=== PATIENT | male | born 1970 | race American Indian/Alaskan Native ===

== ENCOUNTER 2025-03-31 10:49 | Emergency (ER) | payer OTHER ==
[~2025-03-31] VITALS: Ht 182.9 cm; Wt 70.7 kg
[2025-03-31 11:21] VITALS: BP 145/90; PULSE 98; RESP 16; TEMP 97.3; O2SAT 96
--- NOTE | 2025-03-31 11:42 | ED.PDOC ---
History of Present Illness HPI Comments 54-year-old male with no reported PMHx presents with a chief complaint of lump/cyst-like structure to the lateral portion of his right thigh. Patient states that the structure has been there for "about 30 years", but states that now it is growing and is painful to touch. Patient denies getting it looked at b efore by a medical provider. Patient denies any drainage from the structure. No other symptoms or modifying factors present at this time. Chief Complaint: Abscess Time Seen by MD: 11:12 Primary Care Provider: UNKNOWN Reviewed Notes: Medications, Allergies Allergies: Coded Allergies: NO KNOWN ALLERGIES (Unverified , 03/31/25) Information Source: Patient Mode of Arrival: Ambulatory Severity: Moderate Duration: Since onset Prehospital treatment: None Past Medical History PAST MEDICAL HISTORY: Denies Surgical History: Denies all surgeries Family History Family History: Reviewed,noncontributory to illness Social History Smoker: Non-Smoker Alcohol: Denies ETOH Use Drugs: Denies Drug Use Lives In: Home Constitutional: denies: chills, diaphoresis, fatigue, fever, malaise, sweats, weakness, others EENTM: denies: blurred vision, double vision, ear bleeding, ear discharge, ear drainage, ear pain, ear ringing, eye pain, eye redness, hearing loss, mouth pain, mouth swelling, nasal discharge, nose bleeding, nose congestion, nose pain, photophobia, tearing, throat pain, throat swelling, voice changes, others Respiratory: denies: cough, hemoptysis, orthopnea, SOB at rest, shortness of breath, SOB with excertion, stridor, wheezing, others Cardiovascular: denies: chest pain, dizzy spells, diaphoresis, Dyspnea on exertion, edema, irregular heart beat, left arm pain, lightheadedness, palpitations, PND, syncope, others Gastrointestinal: denies: abdomen distended, abdominal pain, blood streaked bowels, constipated, diarrhea, dysphagia, difficulty swallowing, hematemesis, melena, nausea, poor appetite, poor fluid intake, rectal bleeding, rectal pain, vomiting, others Genitourinary: denies: burning, dysuria, flank pain, frequency, hematuria, incontinence, penile discharge, penile sore, pain, testicle pain, testicle swelling, urgency, others Neurological: denies: dizziness, fainting, headache, left sided numbness, left sided weakness, numbness, paresthesia, pre-existing deficit, right sided numbness, right sided weakness, seizure, speech problems, tingling, tremors, weakness, others Musculoskeletal: denies: back pain, gout, joint pain, joint swelling, muscle pain, muscle stiffness, neck pain, others Integumetry: reports: lumps; denies: bruises, change in color, change in hair/nails, dryness, laceration, lesions, rash, wounds, others Allergic/Immunocompromised: denies: Difficulty Healing, Frequent Infections, Hives, Itching, others Hematologic/Lymphatic: denies: anemia, blood clots, easy bleeding, easy bruising, swollen glands, others Endocrine: denies: excessive hunger, excessive sweating, excessive thirst, excessive urination, flushing, intolerance to cold, intolerance to heat, unexplained weight gain, unexplained weight loss, others Psychiatric: denies: anxiety, bipolar disorder, depression, hopeless, panic disorder, schizophrenia, sleepless, suicidal, others All Other Systems: Reviewed and Negative Physical Exam General Appearance: Moderate Distress, Normal HEENT: Normal ENT Inspection, Pharynx Normal, TMs Normal Neck: Full Range of Motion, Non-Tender, Normal, Normal Inspection Respiratory: Chest Non-Tender, Lungs Clear, No Accessory Muscle Use, No Respiratory Distress, Normal Breath Sounds Cardiovascular: No Edema, No JVD, No Murmur, No Gallop, Normal Peripheral Pulses, Regular Rate/Rhythm Breast Exam: Deferred Gastrointestinal: No Organomegaly, Non Tender, No Pulsatile Mass, Normal Bowel Sounds, Soft Genitalia: Deferred Pelvic: Deferred Rectal: Deferred Extremities: No calf tenderness, Normal capillary refill, Normal inspection, Normal range of motion, Non-tender, No pedal edema Musculoskeletal : Apperance: Normal Neurologic: Alert, 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 Was a procedure done?: No Differential Dx Considerations may include: Abscess Cyst X-Ray, Labs, Meds, VS Vital Signs Date Time Temp Pulse Resp B/P (MAP) Pulse Ox O2 Delivery O2 Flow Rate FiO2 03/31/25 11:21 97.3 98 16 145/90 (108) 96 97.3 03/31/25 11:00 98.2 89 18 132/78 (96) 96 98.2 Patient alert. Has a lesion in the right upper thigh. Vitals stable. Answering questions. Saturation pristine on room air. On examination firm lesion in the right upper thigh red in color possibly cyst. Explained to the patient that he will need to be admitted for excisional biopsy of the lesion. Was given prescription of amoxicillin clindamycin antibiotic. Patient did not want to stay. Left without signing any papers. Contact the patient. Time of 1ST Reevaluation: 11:42 Reevaluation 1ST: Unchanged Patient Education/Counseling: Diagnosis, Treatment, Prognosis Family Education/Counseling: No Family Present SEPSIS Sepsis Screen Date sepsis recognized/suspect: Mar 31, 2025 Time Sepsis recognized/suspect: 1100 Recent Procedure: No On Antibiotic Therapy: No Respiratory Rate >20: No Heart Rate >90: No Temp<36 C (96.8 F) or >38.3 C: No SBP <90 or MAP <65 mmHG: No New Acute Mental Status Change: No Is the patient on CPAP, BIPAP,: No Vital Signs Date Time Temp Pulse Resp B/P (MAP) Pulse Ox O2 Delivery O2 Flow Rate FiO2 03/31/25 11:21 97.3 98 16 145/90 (108) 96 97.3 03/31/25 11:00 98.2 89 18 132/78 (96) 96 98.2 Departure 1 Departure Time of Disposition: 12:40 Impression: Primary Impression: Cyst Disposition: 07 LEFT AWOL/ELOPED Condition: Good e-Prescriptions Clindamycin Hcl (Clindamycin Hcl) 300 Mg Cap 1 CAP PO TID for 7 Days, #21 CAP Prov: JIHAN KC MD 03/31/25 Amoxicillin Trihydrate (Amoxicillin) 500 Mg Tab 1 TAB PO TID for 7 Days, #21 TAB Prov: JIHAN KC MD 03/31/25 Discharged With: Self Critical Care Note Critical Care Time?: No Stability Stability form required: No Heart Score Heart Score: Heart Score Response (Comments) Value History N/A 0 EKG N/A 0 Age N/A 0 Risk Factors N/A 0 Troponin N/A 0 Total 0 I personally scribed for JIHAN KC MD ([email or web address]) on 03/31/25 at 11:42. Electronically submitted by Luis Enrique Shea ([email or web address]). JIHAN KC MD Mar 31, 2025 11:42
[2025-03-31] MEDS ORDERED: CLIN1CAP70 PO (12:43)
[2025-03-31] MEDS ORDERED: AMOX500T3 PO (12:43)
== END 2025-03-31 12:13 | disposition left against medical advice (07) ==
LOC: ER 10:49
DX: L98.8 Other specified disorders of the skin and subcutaneous tissue (principal)